=== PATIENT | female | born 1975 | race Two or more races ===

== ENCOUNTER 2017-05-27 12:43 | Emergency (ER) | payer OTHER ==
[~2017-05-27] VITALS: Ht 162.6 cm; Wt 83.9 kg
[~2017-05-27 12:43] MED LIST: CYCLOBENZAPRINE10 MG ORAL; IBUPROFEN600 MG ORAL
[2017-05-27 12:52] VITALS: BP 128/71
--- NOTE | 2017-05-27 13:12 | Emergency Room Report ---
History of Present Illness General Chief Complaint: Head Injury Source: Patient Present Illness HPI The patient is a 42-year-old female presenting for headache, dizziness, and feeling of confusion after work-related injury yesterday. She states that she was bent over and a metal pot fell on the left side of her head. She denies loss of consciousness. She does admit to nausea with one episode of vomiting this morning. Pain is an 8/10 dull ache primarily to the left side of the head. She denies blurred vision, F, chills, neck pain, SOB, CP Allergies: Coded Allergies: No Known Allergies (Unverified , 07/10/16) Patient History Past Medical History: see triage record Pertinent Family History: none Now: No Reviewed Nursing Documentation: PMH: Agreed, PSxH: Agreed Nursing Documentation-PMH Past Medical History: No Stated History Review of Systems All Other Systems: negative except mentioned in HPI Physical Exam Vital Signs Date Time Temp Pulse Resp B/P (MAP) Pulse Ox O2 Delivery O2 Flow Rate FiO2 05/27/17 12:46 98.1 56 20 128/71 100 Room Air Sp02 EP Interpretation: reviewed, normal General Appearance: no apparent distress, alert, GCS 15, non-toxic Head: normocephalic, atraumatic, other - TTP over the L parietal scalp Eyes: bilateral eye normal inspection, bilateral eye PERRL ENT: hearing grossly normal, normal pharynx, no angioedema, normal voice Neck: full range of motion, supple/symm/no masses Respiratory: chest non-tender, lungs clear, normal breath sounds, speaking full sentences Cardiovascular #1: regular rate, rhythm, no edema Genitourinary: normal inspection, no CVA tenderness Musculoskeletal: back normal, gait/station normal, normal range of motion, non- tender Neurologic: alert, oriented x3, responsive, motor strength/tone normal, sensory intact, speech normal Psychiatric: judgement/insight normal, memory normal, mood/affect normal, no suicidal/homicidal ideation Skin: normal color, no rash, warm/dry, well hydrated Medical Decision Making PA Attestation Dr. Bernstein is my supervising physician. Patient management was discussed with my supervising physician Diagnostic Impression: Primary Impression: Concussion Qualified Codes: S06.0X0A - Concussion without loss of consciousness, initial encounter ER Course The patient is a 42-year-old female presenting for nausea, vomiting, and headache after injury at work Differential diagnoses considered but not limited to: Concussion, contusion, intracranial hemorrhage, fracture, among others PE: NAD. Head is NC/AT. TTP over the L scalp. No depressions. No hematoma. No crepitus Neck is soft and supple. No midline tenderness. FulL AROM. CT head unremarkable. Pt is given tylenol and zofran and will be DC'ed home. She needs to FU with PMD and worker's compensation. ER precautions given CT/MRI/US Diagnostic Results CT/MRI/US Diagnostic Results : Imaging Test Ordered: CT head Impression unremarkable Last Vital Signs Date Time Temp Pulse Resp B/P (MAP) Pulse Ox O2 Delivery O2 Flow Rate FiO2 05/27/17 12:52 98.1 58 20 128/71 100 Room Air Status: improved Disposition: HOME, SELF-CARE Condition: Improved Scripts Ondansetron* (ZOFRAN*) 4 Mg Tablet 4 MG ORAL Q6H Y for Nausea & Vomiting, #20 TAB Prov: BROOKS [email or web address].[email or web address] 05/27/17 Ibuprofen* (MOTRIN*) 600 Mg Tablet 600 MG ORAL Q8H Y for For Pain, #30 TAB 0 Refills Prov: BROOKS BARAHONA P.AGraciela 05/27/17 BROOKS BARAHONA May 27, 2017 13:12
--- NOTE | 2017-05-27 13:28 | Diagnostic Imaging Report ---
Indication: Head trauma. Headache Technique: Contiguous 5 mm thick transaxial imaging of the head obtained in a Siemens Sensation [address] scanner. Soft tissue and bone windows generated. Total Dose length Product (DLP): [address] Dose Index Volume (CTDIvol): 70.38, 0.15 mGy Comparison: none Findings: The size and configuration of the cortical sulci, basal cisterns, and ventricles are within normal limits for age. There is no mass effect, midline shift, or edema identified. There is no evidence of acute hemorrhage or abnormal intra-axial or extra-axial fluid collections. The bones and soft tissues are unremarkable. Impression: No mass effect, edema or acute bleed. The CT scanner at [facility] is accredited by the [employer] and the scans are performed using dose optimization techniques as appropriate to a performed exam including Automatic Exposure control.
[2017-05-27] MEDS ORDERED: ZOFRAN4 M3 ORAL (13:46)
[2017-05-27] MEDS ORDERED: IBUPROFEN600 MG ORAL (13:46)
[2017-05-27 14:04] VITALS: BP 125/70
[2017-05-27 14:06] VITALS: BP 125/70
== END 2017-05-27 14:07 | disposition home or self-care (01) ==
LOC: EMR 13:08
DX: S06.0X0A Concussion without loss of consciousness, initial encounter (principal); W20.8XXA Other cause of strike by thrown, projected or falling object, initial encounter; Y93.9 Activity, unspecified; Y99.0 Civilian activity done for income or pay; R11.2 Nausea with vomiting, unspecified
CPT/HCPCS: 70450; 99284